=== PATIENT | female | born 1980 | race Caucasian/White ===

== ENCOUNTER 2020-01-16 17:49 | Emergency (ER) | payer OTHER ==
--- NOTE | 2020-01-16 18:37 | EDM.PDOC ---
ED HPI GENERAL MEDICAL PROBLEM - General Chief Complaint: ENT Problem Stated Complaint: LOWER JAW TOOTH PAIN Time Seen by Provider: 01/16/20 18:20 Source of Information: Reports: Patient History Limitations: Reports: No Limitations - History of Present Illness INITIAL COMMENTS - FREE TEXT/NARRATIVE: Carlos is a 39yo female that is new to our area and presents to the ED with c/o left lower wisdom tooth pain. States that tooth is cracked and broken. The pain is severe- rates 8/10 and radiates up to her left ear. She has been taking 440 mg of naproxen and then repeating the dose a few hours later without relief. She has an appointment at [facility] on tuesday. 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 Left Lower Oral/Mouth Pain Score (Numeric/FACES): 8 - Related Data Allergies Allergy/AdvReac Type Severity Reaction Status Date / Time No Known Allergies Allergy Verified 01/16/20 18:08 Home Meds: Home Meds Clindamycin HCl 300 mg PO TID 10 Days #30 capsule 01/16/20 [Rx] Past Medical History - Past Health History Medical/Surgical History: Denies Medical/Surgical History Social & Family History - Tobacco Use Smoking Status *Q: Current Every Day Smoker Years of Tobacco use: 20 Packs/Tins Daily: 0.5 ED ROS ENT - Review of Systems Review Of Systems: See Below Constitutional: Reports: Fatigue HEENT: Reports: Dental Pain (left wisdom tooth) Respiratory: Reports: No Symptoms Cardiovascular: Reports: No Symptoms Endocrine: Reports: No Symptoms GI/Abdominal: Reports: No Symptoms : Reports: No Symptoms Musculoskeletal: Reports: No Symptoms Skin: Reports: No Symptoms Neurological: Reports: No Symptoms Psychiatric: Reports: No Symptoms Hematologic/Lymphatic: Reports: No Symptoms Immunologic: Reports: No Symptoms ED EXAM, ENT - Physical Exam Exam: See Below Exam Limited By: No Limitations General Appearance: Alert, WD/WN, No Apparent Distress Eye Exam: Bilateral Eye: Normal Inspection Ears: Normal External Exam, Normal Canal, Hearing Grossly Normal, Normal TMs. No: Mastoid Swelling, Mastoid Tenderness, TM Erythema Nose: Normal Inspection, Normal Mucousa, No Blood Mouth/Throat: Normal Inspection, Normal Lips, Dental Pain (to left lower last molar/ wisdom tooth. tooth is broken/ cracked along the lateral side- ), Pharyngeal Erythema (mild ), Tonsillar Erythema (mild). No: Dry Mucous Membrane (irritation), Gum Swelling, Peritonsillar Mass, Throat Pain, Throat Swelling, Tonsillar Exudates, Tonsillar Swelling, Uvular Deviation, Uvular Edema Head: Atraumatic, Normocephalic, Facial Tenderness. No: Facial Abrasions Neck: Normal Inspection, Supple, Tender Lateral (inferior to left distal mandible). No: Lymphadenopathy (R), Lymphadenopathy (L) Respiratory/Chest: No Respiratory Distress Psychiatric: Normal Affect, Normal Mood Skin: Warm, Dry, Intact Course - Vital Signs Last Recorded V/S: Last Vital Signs Temp 97.4 F 01/16/20 18:07 Pulse 97 01/16/20 18:07 Resp 13 01/16/20 18:07 BP 166/96 H 01/16/20 18:07 Pulse Ox 98 01/16/20 18:07 Departure - Departure Time of Disposition: 18:31 Disposition: Home, Self-Care 01 Condition: Good Clinical Impression: Dental abscess, Dental caries extending into dentin - Discharge Information *PRESCRIPTION DRUG MONITORING PROGRAM REVIEWED*: No *COPY OF PRESCRIPTION DRUG MONITORING REPORT IN PATIENT WESLEY: No Prescriptions: Clindamycin HCl 300 mg PO TID 10 Days #30 capsule Instructions: Dental Abscess, [id number] Referrals: PCP,None [Primary Care Provider] - Forms: ED Department Discharge Care Plan Goals: Keep your dental appointment for Tuesday. Make sure you let the dental clinic know that you were seen in ER and prescribed antibiotics. finish all your antibiotic even if you start to feel better. You may take a probiotic or eat some yogurt with live and active cultures to help with the GI side effects of clindamycin. Continue to take 440mg of naproxen with food twice daily. Use the hydrocodone for breakthrough pain and at night to help you sleep. DO not drive or operate machinery while taking this medication. call or return to ED with any worsening of symptoms. Sepsis Event Note (ED) - Evaluation Sepsis Screening Result: No Definite Risk - Focused Exam Vital Signs: Vital Signs Temp Pulse Resp BP Pulse Ox 01/16/20 18:07 97.4 F 97 13 166/96 H 98 01/16/20 17:58 97.4 F 97 13 166/96 H 98 - Assessment/Plan Plan: Plan: keep your follow-up appointment at the dental clinic on tuesday. Antibiotics (clindamycin) and norco (4 tabs) for discharge.
== END 2020-01-16 18:44 | disposition home or self-care (01) ==
LOC: JP.ED 17:49
DX: K04.7 Periapical abscess without sinus (principal); K02.9 Dental caries, unspecified; F17.210 Nicotine dependence, cigarettes, uncomplicated
CPT/HCPCS: 99282

== ENCOUNTER 2020-05-23 21:42 | Emergency (ER) | payer MEDICAID ==
[2020-05-23] MEDS ORDERED: Ketorolac 60 MG/2 ML SDV IM ONE (22:10)
--- NOTE | 2020-05-23 22:32 | EDM.PDOC ---
ED HPI GENERAL MEDICAL PROBLEM - General Chief Complaint: ENT Problem Stated Complaint: TOOTHACHE LOWER LEFT Time Seen by Provider: 05/23/20 22:20 Source of Information: Reports: Patient, RN History Limitations: Reports: No Limitations - History of Present Illness INITIAL COMMENTS - FREE TEXT/NARRATIVE: 39 yo female presents with worsening dental pain. No fever. Has been unsucc essful in getting into a dentist due to Covid and her "State insurance". Dr. Deleon is her primary. Recently moved here from the [facility]. Onset: Gradual Duration: Day(s):, Getting Worse Location: Reports: Face (L mandible posteriorly) Quality: Reports: Ache Severity: Moderate Improves with: Reports: None Worsens with: Reports: Other (time) Context: Reports: Other (See HPI) Associated Symptoms: Reports: No Other Symptoms. Denies: Fever/Chills, Nausea/Vomiting Treatments TATTOO ARTIST: Reports: Other (see below) (ETOH and oxycodone) tooth Pain Score (Numeric/FACES): 10 - Related Data Allergies Allergy/AdvReac Type Severity Reaction Status Date / Time No Known Allergies Allergy Verified 05/23/20 22:06 Home Meds: Home Meds NK [No Known Home Meds] 05/23/20 [History] Past Medical History - Past Health History Medical/Surgical History: Denies Medical/Surgical History HEENT History: Reports: Impaired Vision, Other (See Below) Other HEENT History: glasses Gastrointestinal History: Reports: Other (See Below) Other Gastrointestinal History: polyps in gallbladder 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: Musculoskeletal History: Reports: Fracture, Other (See Below) Other Musculoskeletal History: right heel fx Psychiatric History: Reports: Anxiety, Suicide Attempt - Infectious Disease History Infectious Disease History: Reports: Chicken Pox - Past Surgical History Female Surgical History: Reports: Section, Hysterectomy, Nephrectomy Social & Family History - Tobacco Use Tobacco Use Status *Q: Current Every Day Tobacco User Years of Tobacco use: 27 Packs/Tins Daily: 0.5 - Caffeine Use Caffeine Use: Reports: Coffee - Recreational Drug Use Recreational Drug Use: No ED ROS ENT - Review of Systems Review Of Systems: See Below Constitutional: Reports: No Symptoms HEENT: Reports: Dental Pain Respiratory: Reports: No Symptoms GI/Abdominal: Reports: No Symptoms Skin: Reports: No Symptoms Neurological: Reports: No Symptoms ED EXAM, ENT - Physical Exam Exam: See Below Exam Limited By: No Limitations General Appearance: Alert, WD/WN, No Apparent Distress Eye Exam: Bilateral Eye: Normal Inspection Ears: Normal External Exam, Normal Canal, Hearing Grossly Normal Nose: Normal Inspection, No Blood Mouth/Throat: Normal Lips, Normal Oropharynx, Dental Pain, Other (L posterior molar has much of the crown eroded away due to decay.) Head: Atraumatic, Normocephalic. No: Facial Swelling Neck: Normal Inspection. No: Lymphadenopathy (R), Lymphadenopathy (L) Neurological: Alert, Oriented, CN II-XII Intact, Normal Cognition, No Motor/Sensory Deficits Psychiatric: Normal Affect, Normal Mood Skin: Warm, Dry, Intact, Normal Color, No Rash Course - Vital Signs Last Recorded V/S: Last Vital Signs Temp 35.3 C L 05/23/20 22:11 Pulse 106 H 05/23/20 22:11 Resp 15 05/23/20 22:11 BP 136/85 05/23/20 22:11 Pulse Ox 97 05/23/20 22:11 - Orders/Labs/Meds Meds: Medications Discontinued Medications Generic Name Dose Route Start Last Admin Trade Name Alex PRN Reason Stop Dose Admin Ketorolac Tromethamine 60 mg 05/23/20 22:10 Toradol IM 05/23/20 22:11 ONETIME ONE Departure - Departure Time of Disposition: 22:35 Disposition: Home, Self-Care 01 Condition: Fair Clinical Impression: Pain, dental - Discharge Information *PRESCRIPTION DRUG MONITORING PROGRAM REVIEWED*: No *COPY OF PRESCRIPTION DRUG MONITORING REPORT IN PATIENT WESLEY: No Referrals: Ave Deleon DO [Primary Care Provider] - Additional Instructions: Take ibuprofen 600 mg every 6 hrs with food for pain relief. Take penicillin as directed for infection. For added relief use Chisholm as directed. See a dentist merlyn. If you need care before you are able to get into the dentist, then see Dr. Deleon. Sepsis Event Note (ED) - Evaluation Sepsis Screening Result: No Definite Risk - Focused Exam Vital Signs: Vital Signs Temp Pulse Resp BP Pulse Ox 05/23/20 22:11 35.3 C L 106 H 15 136/85 97 05/23/20 22:08 35.3 C L 106 H 15 136/85 97
== END 2020-05-23 22:50 | disposition home or self-care (01) ==
LOC: JP.ED 21:42
DX: K02.9 Dental caries, unspecified (principal); F17.210 Nicotine dependence, cigarettes, uncomplicated
CPT/HCPCS: 96372; 99282; J1885

== ENCOUNTER 2020-05-25 13:10 | Emergency (ER) | payer MEDICAID ==
--- NOTE | 2020-05-25 14:10 | EDM.PDOC ---
ED HPI GENERAL MEDICAL PROBLEM - General Chief Complaint: ENT Problem Stated Complaint: TOOTH PAIN Time Seen by Provider: 05/25/20 14:00 Source of Information: Reports: Patient, Old Records, RN Notes Reviewed History Limitations: Reports: No Limitations - History of Present Illness INITIAL COMMENTS - FREE TEXT/NARRATIVE: 39-year-old female presents emergency department with a complaint of dental pain, she was evaluated in the emergency department on 23 May placed on antibiotics of penicillin and hydrocodone for pain control. She presents today stating the pain has not improved and the swelling infection seems to be getting worse. She states is now getting hard for her to swallow because of the swelling she has not been able to connect with a dentist due to the holiday - Related Data Allergies Allergy/AdvReac Type Severity Reaction Status Date / Time No Known Allergies Allergy Verified 05/25/20 13:43 Home Meds: Home Meds Hydrocodone/Acetaminophen [Hydrocodon-Acetaminophen 5-325] 1 - 2 tab PO Q4HR 05/25/20 [History] Penicillin V Potassium 1 tab PO QID 05/25/20 [History] Past Medical History HEENT History: Reports: Impaired Vision, Other (See Below) Other HEENT History: glasses Gastrointestinal History: Reports: Other (See Below) Other Gastrointestinal History: polyps in gallbladder 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: Musculoskeletal History: Reports: Fracture, Other (See Below) Other Musculoskeletal History: right heel fx Psychiatric History: Reports: Anxiety, Suicide Attempt - Infectious Disease History Infectious Disease History: Reports: Chicken Pox - Past Surgical History Female Surgical History: Reports: Section, Hysterectomy, Nephrectomy Social & Family History - Tobacco Use Tobacco Use Status *Q: Current Every Day Tobacco User Years of Tobacco use: 30 Packs/Tins Daily: 0.5 - Caffeine Use Caffeine Use: Reports: Coffee ED ROS ENT - Review of Systems Review Of Systems: See Below Constitutional: Reports: No Symptoms HEENT: Reports: Dental Pain, Throat Pain ED EXAM, ENT - Physical Exam Exam: See Below Text/Narrative:: Mouth mucosa is moist and pink no erythema exudate known soft palate tongue is midline uvula is midline airways open patent and clear, examination tooth #17 shows a significant portion missing due to decay it is tender to the touch Exam Limited By: No Limitations General Appearance: Alert, WD/WN, No Apparent Distress Neck: Normal Inspection, Supple, Non-Tender, Full Range of Motion Course - Vital Signs Last Recorded V/S: Last Vital Signs Temp 96.8 F L 05/25/20 13:50 Pulse 95 05/25/20 13:50 Resp 16 05/25/20 13:50 BP 143/93 H 05/25/20 13:50 Pulse Ox 100 05/25/20 13:50 Departure - Departure Time of Disposition: 14:10 Disposition: Home, Self-Care 01 Condition: Fair Clinical Impression: Dental abscess, Dental caries extending into dentin - Discharge Information Instructions: Dental Abscess, [id number] Referrals: PCP,None [Primary Care Provider] - Additional Instructions: Change antibiotics to clindamycin, change of pain control to Percocet, try and contact dentistry as soon as possible Sepsis Event Note (ED) - Evaluation Sepsis Screening Result: No Definite Risk - Focused Exam Vital Signs: Vital Signs Temp Pulse Resp BP Pulse Ox 05/25/20 13:50 96.8 F L 95 16 143/93 H 100 05/25/20 13:41 96.8 F L 95 16 143/93 H 100 - Assessment/Plan Plan: Assessment Acuity = acute Site and laterality = dental abscess molar #17 Etiology = dental caries Manifestations = pain Location of injury = Home Lab values = none Plan Change antibiotics to clindamycin 300 mg 4 times daily, changed pain control Percocet 5/325 1 tab p.o. every 6 hours as needed total #10 she will try and contact dentistry tomorrow This note was dictated using [employer] voice recognition software please call with any questions on syntax or grammar.
== END 2020-05-25 14:16 | disposition home or self-care (01) ==
LOC: JP.ED 13:10
DX: K04.7 Periapical abscess without sinus (principal); K02.9 Dental caries, unspecified; F17.210 Nicotine dependence, cigarettes, uncomplicated
CPT/HCPCS: 99282

== ENCOUNTER 2022-08-20 10:58 | Emergency (ER) | payer MEDICAID ==
[2022-08-20] MEDS ORDERED: LORazepam 1 MG Tab PO ONE (11:56)
== END 2022-08-20 13:19 | disposition home or self-care (01) ==
LOC: JP.ED 10:58
DX: R07.89 Other chest pain (principal); F41.0 Panic disorder [episodic paroxysmal anxiety]; F43.9 Reaction to severe stress, unspecified; I10 Essential (primary) hypertension; Z72.0 Tobacco use
CPT/HCPCS: 36415; 71045; 80048; 84439; 84443; 84484; 85025; 85379; 93005; 99284; A9270

== ENCOUNTER 2023-09-10 01:15 | Emergency (ER) | payer MEDICAID, OTHER ==
[2023-09-10 01:38] LABS: BASOPHILS ABSOLUTE AUTO 0.11 K/uL (0.00-0.10); BASOPHILS PERCENT AUTO 0.9 % (0.1-1.3); EOSINOPHILS ABSOLUTE AUTO 0.23 K/uL (0.00-0.40); EOSINOPHILS PERCENT AUTO 1.8 % (0.0-5.4); HEMATOCRIT 45.2 % (34.3-46.0); HEMOGLOBIN 15.6 g/dL (11.2-15.5); IMMATURE GRAN ABSOLUTE AUTO 0.03 K/uL (0.00-0.23); IMMATURE GRAN PERCENT AUTO 0.2 % (0.0-0.7); LYMPHOCYTES ABSOLUTE AUTO 4.48 K/uL (0.8-3.3); LYMPHOCYTES PERCENT AUTO 35.7 % (11.4-47.7); MEAN CORPUSCULAR HEMOGLOBIN 33.8 pg (31.6-35.5); MEAN CORPUSCULAR HGB CONC 34.5 g/dL (31.6-35.5); MEAN CORPUSCULAR VOLUME 97.8 fL (81.4-99.0); MONOCYTES PERCENT AUTO 4.8 % (3.3-12.6); NEUTROPHILS ABSOLUTE AUTO 7.11 K/uL (1.0-7.6); NEUTROPHILS PERCENT AUTO 56.6 % (40.0-78.1); PLATELET COUNT,PLT 291 K/uL (130-375); RED BLOOD CELL COUNT 4.62 M/uL (3.77-5.24); WHITE BLOOD CELL COUNT,WBC 12.6 K/uL (3.2-11.0)
[2023-09-10 01:49] LABS: APPEARANCE,URINE CLEAR (CLEAR); BILIRUBIN,URINE NEGATIVE (NEGATIVE); COLOR,URINE YELLOW (YELLOW); GLUCOSE,URINE NEGATIVE (NEGATIVE); KETONES,URINE NEGATIVE (NEGATIVE); LEUKOCYTE ESTERASE,URINE NEGATIVE (NEGATIVE); NITRITE,URINE NEGATIVE (NEGATIVE); OCCULT BLOOD,URINE NEGATIVE (NEGATIVE); PH,URINE 6.5 (5.0-8.0); PROTEIN,URINE NEGATIVE (NEGATIVE); UROBILINOGEN,URINE 0.2 EU/dL (0.2-1.0)
[2023-09-10 01:53] LABS: ALANINE AMINOTRANSFERASE,ALT 22 U/L (12-78); ALBUMIN 4.2 g/dL (3.4-5.0); ALKALINE PHOSPHATASE 89 U/L (46-116); ASPARTATE AMNIOTRANSFERASE,AST 13 U/L (15-37); BLOOD UREA NITROGEN,BUN 14 mg/dL (7-18); CALCIUM 9.1 mg/dL (8.5-10.1); CARBON DIOXIDE,CO2 28 mmol/L (21-32); CHLORIDE,CL 104 mmol/L (100-108); CREATININE 0.7 mg/dL (0.6-1.0); ESTIMATED GFR 109 mL/min (>60); GLUCOSE RANDOM 104 mg/dL (74-106); POTASSIUM,K 3.3 mmol/L (3.6-5.2); PROTEIN TOTAL,TP 8.5 g/dL (6.4-8.2); SODIUM,NA 144 mmol/L (140-148); T4 FREE 1.24 ng/dL (0.76-1.46)
[2023-09-10 01:56] LABS: ANION GAP 15.3 mmol/L (5.0-14.0); BILIRUBIN TOTAL < 0.1 mg/dL (0.2-1.0)
[2023-09-10 02:01] LABS: AMPHETAMINES SCREEN, URINE NEGATIVE (NEGATIVE); BARBITURATE SCREEN,URINE NEGATIVE (NEGATIVE); BENZODIAZEPINES SCREEN,URINE NEGATIVE (NEGATIVE); METHADONE SCREEN, URINE NEGATIVE (NEGATIVE); METHAMPHETAMINES SCREEN, URINE NEGATIVE (NEGATIVE); OXYCODONE SCREEN,URINE NEGATIVE (NEGATIVE); PROPOXYPHENE SCREEN,URINE NEGATIVE (NEGATIVE); THC SCREEN,URINE 50 NG/ML NEGATIVE (NEGATIVE)
[2023-09-10 02:04] LABS: BACTERIA,URINE FEW; EPITHELIAL CELLS,URINE RARE; RBC,URINE 0-5 (0-5); WBC,URINE 0-5 (0-5)
[2023-09-10 02:05] LABS: AMORPHOUS SEDIMENT,URINE FEW; MUCUS,URINE NOT SEEN
== END 2023-09-10 09:44 | disposition home or self-care (01) ==
LOC: JP.ED 01:15
DX: F10.129 Alcohol abuse with intoxication, unspecified (principal); F32.A Depression, unspecified; F17.210 Nicotine dependence, cigarettes, uncomplicated; Z86.19 Personal history of other infectious and parasitic diseases; Z79.899 Other long term (current) drug therapy; Y90.8 Blood alcohol level of 240 mg/100 ml or more
CPT/HCPCS: 36415; 80053; 80143; 80179; 80305-QW; 80307; 81001; 82140; 84439; 85025; 93005; 99285